=== PATIENT | female | born 1985 | race Caucasian/White ===

== ENCOUNTER 2019-02-15 06:31 | Inpatient (IN) | payer OTHER ==
[~2019-02-15] VITALS: Ht 170.2 cm; Wt 87.9 kg
[~2019-02-15 06:31] MED LIST: PANT40TA4 PO; SUCR1TAB35 PO
[2019-02-15 09:45] VITALS: BP 130/77; RESP 16
[2019-02-15 09:47] VITALS: Ht 170.2 cm; Wt 87.9 kg
[2019-02-15] MEDS ORDERED: morphine 2 MG INJ IV PRN (10:00)
[2019-02-15] MEDS ORDERED: ONDANSETRON 4 MG INJ IV PRN (10:00)
[2019-02-15] MEDS ORDERED: ACETAMINOPHEN 325 MG TAB PO PRN (10:00)
[2019-02-15] MEDS ORDERED: NACL 0.9% 3 ML SYG IV SCH (10:00)
[2019-02-15] MEDS: PIPER-TAZO 3.375 GM IV (PMX) 100 ML IVPB SCH ×2 (13:21→17:27)
[2019-02-15] MEDS: PANTOPRAZOLE 40 MG INJ IV SCH (13:21)
[2019-02-15] MEDS: SOD CHLORIDE 0.9% 1,000 ML IV SCH ×2 (13:23→20:00)
[2019-02-15 14:03] VITALS: BP 102/59; PULSE 54; RESP 16
[2019-02-15 20:50] VITALS: BP 100/51; PULSE 56; RESP 19
[2019-02-16] VITALS (14 sets, daily range): BP systolic 96–130; BP diastolic 52–75; PULSE 54–85; RESP 16–31
[2019-02-16] MEDS: PIPER-TAZO 3.375 GM IV (PMX) 100 ML IVPB SCH ×4 (00:09→18:59)
[2019-02-16] MEDS: SOD CHLORIDE 0.9% 1,000 ML IV SCH ×2 (00:09→11:42)
[2019-02-16] MEDS: PANTOPRAZOLE 40 MG INJ IV SCH ×2 (05:30→20:34)
[2019-02-16] MEDS ORDERED: PROPOFOL 20 ML ONE (17:04)
[2019-02-16] MEDS ORDERED: PANTOPRAZOLE 40 MG INJ ONE (19:44)
[2019-02-17] MEDS: PIPER-TAZO 3.375 GM IV (PMX) 100 ML IVPB SCH ×2 (00:21→06:05)
[2019-02-17] MEDS: SOD CHLORIDE 0.9% 1,000 ML IV SCH (01:05)
[2019-02-17 02:59] VITALS: BP 97/53; PULSE 69; RESP 20
[2019-02-17 08:00] VITALS: BP 107/68; PULSE 80; RESP 20
[2019-02-17] MEDS: PANTOPRAZOLE 40 MG INJ IV SCH (08:48)
[2019-02-17 14:00] VITALS: BP 120/62; PULSE 84; RESP 18
[2019-02-17] MEDS: SUCRALFATE 1 GM TAB PO SCH ×3 (14:59→20:41)
[2019-02-17] MEDS: PANTOPRAZOLE (EC) 40 MG TAB PO SCH (18:30)
[2019-02-17 20:30] VITALS: BP 108/64; PULSE 67; RESP 18
[2019-02-18 02:31] VITALS: BP 105/54; PULSE 65; RESP 18
[2019-02-18] MEDS: PANTOPRAZOLE (EC) 40 MG TAB PO SCH (06:08)
[2019-02-18 08:21] VITALS: BP 115/69; PULSE 76; RESP 18
[2019-02-18] MEDS: SUCRALFATE 1 GM TAB PO SCH ×2 (08:48→13:25)
== END 2019-02-18 14:30 | disposition home or self-care (01) | DRG 392 ==
LOC: PP2 09:24
PROVIDERS: ADMIT Internal Medicine; ATTEND Internal Medicine
PROC: 0DB98ZX Excision of Duodenum, Via Natural or Artificial Opening Endoscopic, Diagnostic (ICD-10-PCS; 2019-02-16)
PROC: 0DB68ZX Excision of Stomach, Via Natural or Artificial Opening Endoscopic, Diagnostic (ICD-10-PCS; principal; 2019-02-16 15:30)
DX: K31.9 Disease of stomach and duodenum, unspecified (principal); K80.20 Calculus of gallbladder without cholecystitis without obstruction; R12 Heartburn; R16.0 Hepatomegaly, not elsewhere classified; R11.2 Nausea with vomiting, unspecified; R19.7 Diarrhea, unspecified; K27.9 Peptic ulcer, site unspecified, unspecified as acute or chronic, without hemorrhage or perforation; K29.70 Gastritis, unspecified, without bleeding; R00.1 Bradycardia, unspecified
CPT/HCPCS: 74181; 78226; 80053; 80061; 81001; 83036; 83735; 84100; 84443; 84703; 85025; 85049; 85610; 85670; 85730; 87081; 88305; 88312; A9537; C9113; J2270; J2543; J7030

== ENCOUNTER 2019-03-16 05:24 | Day surgery (SDC) | payer OTHER ==
[2019-03-14 16:21] VITALS: Ht 170.2 cm; Wt 85.0 kg
[2019-03-16] VITALS (13 sets, daily range): BP systolic 100–117; BP diastolic 51–75; PULSE 64–88; RESP 14–23
[~2019-03-16] VITALS: Ht 170.2 cm; Wt 85.0 kg
[~2019-03-16 05:24] MED LIST changes: +PANT40TA3 PO; +SUCR1TAB56 PO
[2019-03-16] MEDS ORDERED: GLYCOPYRROLATE 0.4 MG INJ ONE (07:22)
[2019-03-16] MEDS ORDERED: CEFAZOLIN 1 GM INJ ONE (07:22)
[2019-03-16] MEDS ORDERED: PROPOFOL 20 ML ONE (07:22)
[2019-03-16] MEDS ORDERED: ONDANSETRON 4 MG INJ ONE (07:22)
[2019-03-16] MEDS ORDERED: ROCURONIUM 50 MG INJ ONE (07:22)
[2019-03-16] MEDS ORDERED: FENTAnyl 50 MCG/ML VIAL ONE (07:22)
[2019-03-16] MEDS ORDERED: DEXAMETHASONE 4 MG/ML 5 ML INJ ONE (07:22)
[2019-03-16] MEDS ORDERED: NEOSTIGMINE 3 MG/3 ML SYRINGE ONE (07:22)
[2019-03-16] MEDS ORDERED: MIDAZOLAM 1 MG/ML 2 ML INJ ONE (07:22)
[2019-03-16] MEDS ORDERED: DESFLURANE 15 MIN ONE (07:22)
[2019-03-16] MEDS ORDERED: FENTAnyl 50 MCG/ML VIAL IV PRN ×3 (07:30)
[2019-03-16] MEDS ORDERED: MEPERIDINE 25 MG INJ IV PRN (07:30)
[2019-03-16] MEDS ORDERED: IPRATROPIUM (NEB) 0.5 MG/2.5 ML AMP HHN PRN (07:30)
[2019-03-16] MEDS ORDERED: DIPHENHYDRAMINE 50 MG INJ IV PRN (07:30)
[2019-03-16] MEDS ORDERED: ALBUTEROL 0.083% (NEB) 2.5 MG/3 ML AMP HHN PRN (07:30)
[2019-03-16] MEDS ORDERED: ONDANSETRON 4 MG INJ IV PRN ×2 (07:30→09:00)
[2019-03-16] MEDS ORDERED: OXYCODONE/ACETAMINOPHEN (5/325) TAB PO PRN ×4 (07:30→09:00)
[2019-03-16] MEDS ORDERED: EPHEDrine 25 MG/5 ML SYG IV PRN (07:30)
[2019-03-16] MEDS ORDERED: HYDROmorphONE 1 MG/5 ML IV SYRINGE IV PRN ×3 (07:30)
[2019-03-16] MEDS ORDERED: TRIMETHOBENZAMIDE 100 MG/ML VIAL IM PRN (07:30)
[2019-03-16] MEDS ORDERED: hydrALAzine 20 MG INJ IV PRN (07:30)
[2019-03-16] MEDS ORDERED: MIDAZOLAM 1 MG/ML 2 ML INJ IV PRN (07:30)
[2019-03-16] MEDS ORDERED: LABETALOL HCL 20MG INJ IV PRN (07:30)
[2019-03-16] MEDS ORDERED: BUPIVACAINE 0.25%/EPI (SDV) 10 ML INJ ONE (07:51)
[2019-03-16] MEDS ORDERED: KETOROLAC 30 MG INJ ONE (08:23)
[2019-03-16] MEDS ORDERED: ROPIVACAINE 0.5 % 30 ML VIAL ONE ×2 (08:23)
[2019-03-16] MEDS ORDERED: morphine 2 MG INJ IV PRN (09:00)
== END 2019-03-16 10:30 | disposition home or self-care (01) ==
LOC: SDS 05:24
PROVIDERS: ATTEND Surgery
DX: K80.10 Calculus of gallbladder with chronic cholecystitis without obstruction (principal); K21.9 Gastro-esophageal reflux disease without esophagitis; E66.9 Obesity, unspecified
CPT/HCPCS: 47562; J0690; J1100; J1885; J2175; J2250; J2405; J2710; J2795; J3010; Z7610; 84703; 88304